=== PATIENT | male | born 1945 | race Caucasian/White ===

== ENCOUNTER 2020-10-27 14:56 | Outpatient (REF) | payer MEDICARE, OTHER, SELFPAY ==
[2020-10-29 16:40] LABS: COVID-19 RT-PCR UVMMC Result Negative (Negative)
== END 2020-10-27 15:16 ==
LOC: NCHCN 14:56
PROVIDERS: PCP Physician Assistant; Visit Provider Nurse Practitioner Family
DX: R19.7 Diarrhea, unspecified (principal)
CPT/HCPCS: U0003

== ENCOUNTER 2021-07-06 14:01 | Outpatient (REF) | payer MEDICARE, OTHER, SELFPAY ==
--- NOTE | 2021-07-06 12:00 | SKI_PTH ---
PATIENT: Altaf Pulido LOC: [facility] U#:[id number] AGE/SX: 76/M ROOM: RE07/06/[address]: Valeriano Velázquez : 1945 BED: DIS: 07/06/2021 SPEC #: [id number] RECD: 07/06/21 18:17 STATUS: TALHA REKathy #: [id number] GI: 07/06/21 12:[address]: Valeriano Velázquez DEPT: Surgical Specimen RECD BY: Ruth Franco Tissues: 1 - SKIN BIOPSY(SHAVE/PUNCH) Procedures: SKIN LEVEL 4 Comments: [id number]
== END 2021-07-06 14:02 | disposition home or self-care (01) ==
LOC: LBN 14:01
PROVIDERS: PCP Physician Assistant; Visit Provider Physician Assistant
DX: C44.629 Squamous cell carcinoma of skin of left upper limb, including shoulder (principal)
CPT/HCPCS: 88305

== ENCOUNTER 2024-03-10 16:05 | Outpatient (REF) | payer MEDICARE, SELFPAY ==
[2024-03-10 18:34] LABS: HCT 41.7 % (40.0-50.0); HGB 13.5 g/dL (13.5-17.5); MCH 28.2 pg (27.0-33.0); MCHC 32.4 % (32.0-36.0); MCV 87 fL (80-95); MPV 10.1 fL (8.0-11.0); Platelet Count 459 10^3/uL (130-400); RBC 4.79 10^6/uL (4.36-5.78); RDW 13.1 % (11.8-14.1); RDW-SD 41.5 fL; WBC 13.19 10^3/uL (4.4-10.8)
[2024-03-10 18:58] LABS: ALT 30 U/L (16-63); AST 31 U/L (15-37); Alkaline Phosphatase 137 U/L (46-116); Anion Gap 9.3 mmol/L (3-11); BUN 25 mg/dL (7-18); Bilirubin, Total 0.9 mg/dL (0.2-1.0); CO2 29.7 mmol/L (21.0-32.0); CREATININE 1.4 mg/dL (0.70-1.30); Calcium 10.3 mg/dL (8.5-10.1); Chloride 98 mmol/L (98-107); Estimated GFR 50.81 (mL/min/1.73m2); FREE T4 1.59 ng/dL (0.76-1.46); Glucose 104 mg/dL (74-106); Lipase 34 U/L (16-77); Potassium 4.7 mmol/L (3.5-5.1); Sodium 137 mmol/L (136-145); TSH 1.23 uIU/Ml (0.36-3.74)
[2024-03-11 16:31] LABS: Iron 19 ug/dL (65-175)
[2024-03-11 19:25] LABS: CEA 3.1 ng/mL (See Note)
== END 2024-03-10 16:06 | disposition home or self-care (01) ==
LOC: NCHCN 16:05
PROVIDERS: PCP Physician Assistant; Visit Provider Physician Assistant
DX: R63.4 Abnormal weight loss (principal)
CPT/HCPCS: 80053; 83690; 85027; 82378; 83540; 84439; 84443

== ENCOUNTER → 2024-03-13 04:20 | Outpatient (CLI) | payer MEDICARE, SELFPAY ==
[2024-03-13] MEDS: Barium Sulfate 2% W/V-Berry Smoothie 450 ML BTL PO ×2 (08:00→08:01)
[2024-03-13] MEDS: Normal Saline - Diluent 50 ML VIAL IJ (09:14)
[2024-03-13] MEDS: Omnipaque 350 MG/ML 500 ML BTL-Imaging package 100 ML IJ (09:15)
--- NOTE | 2024-03-13 09:27 | DI.CT_ITS ---
Exam(s) CT CHEST/ABD/PEL W EXAM: CT CHEST/ABD/PEL W CLINICAL HISTORY: UNEXPLAINED WT LOSS, R63.4,PROSTATE CA, ? METS. TECHNIQUE: Imaging Protocol: Axial computed tomography images with coronal and sagittal reformatted images were created and reviewed CONTRAST MATERIAL: Intravenous: Omnipaque 350 Contrast volume:100 ml Oral: Yes. Oral contrast was also administered for bowel opacification. COMPARISON: No exams were available for comparison FINDINGS: CHEST: LUNGS: No infiltrates nor pleural effusions. No pulmonary nodules evident. No findings in the trach ea and mainstem bronchi.. MEDIASTINUM: There is no hilar nor mediastinal adenopathy. Visualized thyroid unremarkable. CARDIAC: Heart size is normal. There is no pericardial effusion. OSSEOUS: No significant osseous lesions.Fractures.. ABDOMEN: There is no ascites. LIVER: There are no focal hepatic lesions nor dilatation of intrahepatic ducts. GALLBLADDER/BILIARY: Gallbladder is surgically absent. CBD is not dilated. PANCREAS: No evidence of pancreatic mass nor dilatation of the pancreatic duct. SPLEEN: Spleen size upper normal. Splenic and portal veins are patent. ADRENALS: Left adrenal unremarkable. There is a large mass in the right retroperitoneum starting at level the adrenal gland and extending caudally for a distance of 18 cm, this heterogeneous mass also measuring 12 cm AP by approximately 8 cm wide. It in golf size the medial aspect of the right kidney and renal pelvis and the right renal vein and IVC. Also engulfs the right renal artery. It insinua tia between the abdominal aorta and vertebral bodies, elevating the abdominal aorta by 2 cm off the a nterior cortex of the lumbar vertebrae. In golf so right ureter and results in unilateral right-side d hydronephrosis-moderate. It contacts the uncinate process of the pancreas. KIDNEYS: Is difficult to determine if the above described mass originates from or secondarily involve s the right kidney. It encircles the right renal vein and right renal artery. Opposite-left kidney contains the 2 cysts measuring up to 4.7 x 4.7 cm and there is some subcapsular blood-hematoma with thickness of 1 cm around the inferior half of the left kidney. There are no alvin d lesions in left kidney. No hydronephrosis left kidney. Left ureter is not dilated. ABDOMINAL AORTA: Calcified but not enlarged. However, as described above it is elevated off of the v ertebral bodies by the large right-sided retroperitoneal mass. LYMPH NODES: See above mass description. There is no adenopathy around the aortic bifurcation nor al tara the iliac chains. There is no inguinal adenopathy. ABDOMINAL WALL: No evidence of significant anterior abdominal wall nor inguinal hernia. GI: There is no evidence of bowel obstruction.There is abundant fecal material throughout the colon. PELVIS: LYMPH NODES: There is no intrapelvic nor inguinal adenopathy. GI: No evidence of appendicitis.Extensive sigmoid diverticulosis. No obvious acute diverticulitis. URINARY BLADDER: No calculi nor masses evident REPRODUCTIVE: There is a TURP defect in the prostate. Prostate size is upper normal. Seminal vesicl es unremarkable. Does ectomy clips in both sides of the scrotum. Right-sided varicocele evident. OSSEOUS: There few healed left-sided rib fractures. No lytic nor blastic lesions identified. Multil evel degenerative disc disease. Also mild anterolisthesis L5 upon S1 due to bilateral pars defects a t L5 level. No compression fractures. IMPRESSION: 1. Main finding here is a huge right-sided retroperitoneal mass which involves the right adrenal glan d, right kidney, right renal vein, IVC, right renal artery and is associated with unilateral right-si ded hydronephrosis. It is contiguous with but appears separate from the right psoas muscle. Most pr obably a large heterogeneous malignant mass. 2. It is interesting to note that there is a 9-10 mm thick subcapsular hematoma in the opposite-left kidney. Therefore there is a possibly that this huge right-sided retroperitoneal mass has a hemorrha gic component. 3. This large mass on the right side engulf see IVC and the IVC may be occluded. 4. There are no metastatic nodules in the lung potter and no pleural effusions. No intrathoracic akash nopathy. 5. No metastatic lesions seen in the liver. 6. Gallbladder is surgically absent. Biliary tree is not dilated. No significant osseous lesions. No fractures. Anterolisthesis L5 upon S1 due to L5 level pars defec ts. Report called by myself to GIOVANNA Velázquez at physician's office. (03/13/2024) RADIATION DOSE DELIVERED: 1,639.32mGy.cm Total DLP DATA REPOSITORY: All CT scans at this facility are submitted to the National Radiology Data Registry (NRDR) Dose Index Registry (DIR) with the [employer] ([employer]). RADIATION OPTIMIZATION: All CT scans at this facility use at least one of these dose optimization te chniques: automated exposure control; mA and/or kV adjustment per patient size (includes targeted exa ms where dose is matched to clinical indication); or iterative reconstruction.
== END ==
PROVIDERS: PCP Physician Assistant; Visit Provider Physician Assistant
DX: R93.2 Abnormal findings on diagnostic imaging of liver and biliary tract (principal)
CPT/HCPCS: 74177; 71260

== ENCOUNTER 2024-04-10 10:16 | Emergency (ER) | payer MEDICARE, SELFPAY ==
[2024-04-10] VITALS (34 sets, daily range): BP systolic 107–143; BP diastolic 31–68; PULSE 54–87; RESP 12–22; TEMP 37.1; O2SAT 20–99
[2024-04-10] MEDS: Normal Saline 1,000 ML 1000 ML IV ×2 (11:09→12:07)
--- NOTE | 2024-04-10 11:12 | ED.GENADUL_ITS ---
Discharge Plan Disposition Patient Disposition: Home Condition: Stable Discharge Details Clinical Impression: Cancer cachexia, Palliative care patient, Advanced care planning/counseling discussion Primary Care Provider: Valeriano Velázquez ED Provider: Yocasta Smith Home Meds and New Rx's Prescriptions: No Action ondansetron 4 mg tablet,disintegrating 4 mg PO Q6H PRN hydrocodone-acetaminophen 5-325 mg tablet 1 tab PO Q6H PRN senna 8.6 mg capsule 8.6 mg PO DAILY Qty: 90 0RF olanzapine 2.5 mg tablet See Rx Instructions PO QHS Qty: 30 2RF Rx Instructions: 2.5 mg QHS. Can increae to 2 pills (5 mg) HS after a week if desired orally every day at bedtime; mirabegron [Myrbetriq] 50 mg tablet extended release 24 hr 50 mg PO DAILY ondansetron HCl 4 mg tablet 4 mg PO Q8H Patient Comments: TAKE 1 TABLET BY MOUTH THREE TIMES DAILY NEEDED FOR NAUSEA Discharge Instructions Additional Instructions: use walker to help with mobility [facility] with follow up with you tomorrow HPI General Date/Time Provider Initiated Documentation: 04/10/24 10:31 . Limitations to Documentation: physical limitation . Information obtained by: patient, family and RN/MD . HPI Narrative: 78-year-old gentleman with past medical history of prostate cancer, A-fib on anticoagulation with recent diagnosis of retroperitoneal mass concerning for malignancy presents for evaluation of decreased oral intake and poor function. Patient recently had a biopsy of the mass, but it was inconclusive. He has not started on any therapy. He reports no appetite and poor oral intake. He reports some difficulty with urination though no urinary frequency. He reports that he felt constipated and took a fleets enema this morning with relief of his constipation. Denies fever, nausea or vomiting. He was sent by his primary care provider for evaluation today. His doctor was concerned about his functional status at home. The patient and his state that they are worried he will live to be able to get the biopsy and that they are hoping that there may be something we could do today to help improve his functional status so that he is well enough to get the biopsy. Related Data Home Medications Medication Instructions Recorded Confirmed mirabegron 50 mg tablet,extended 50 mg PO DAILY 03/20/24 04/10/24 release 24 hr (Myrbetriq) hydrocodone 5 mg-acetaminophen 325 1 tab PO Q6H PRN 03/25/24 04/10/24 mg tablet olanzapine 2.5 mg tablet See Rx Instructions PO QHS #30 tabs 03/25/24 03/25/24 ondansetron 4 mg disintegrating 4 mg PO Q6H PRN 03/25/24 04/10/24 tablet sennosides 8.6 mg capsule (senna) 8.6 mg PO DAILY #90 caps 03/25/24 04/10/24 ondansetron HCl 4 mg tablet 4 mg PO Q8H 04/10/24 04/10/24 Previous Rx's Medication Instructions Recorded olanzapine 2.5 mg tablet See Rx Instructions PO QHS #30 tabs 03/25/24 sennosides 8.6 mg capsule (senna) 8.6 mg PO DAILY #90 caps 03/25/24 Allergies Allergy/AdvReac Type Severity Reaction Status Date / Time Penicillins Allergy Skin Rash Verified 04/10/24 11:13 General Stated Complaint: Abd Prob SYED: 3 Exam Narrative Exam Narrative: Review of Systems: All systems reviewed & are unremarkable except as noted in HPI and below Cachectic, ill-appearing NCAT PERRL, normal conjunctiva RRR, no murmur Unlabored respiratory effort, clear bilaterally Nondistended abdomen , soft nontender Extremities w/o deformity, no cyanosis, no edema Mild jaundice no focal neurologic deficits Appropriate mood and affect Course Vital Signs Vital signs: Vital Signs Temperature 37.1 C 04/10/24 10:25 Pulse 79 04/10/24 10:25 Respiratory Rate 16 04/10/24 10:25 Blood Pressure 109/31 L 04/10/24 10:25 Pulse Oximetry 98 04/10/24 10:25 Temperature 37.1 C 04/10/24 10:25 Temperature Source Temporal Artery Scan 04/10/24 10:25 Pulse 72 04/10/24 10:59 Respiratory Rate 15 04/10/24 10:59 Respiratory Effort Normal, Non-Labored 04/10/24 10:59 Blood Pressure 126/64 04/10/24 10:59 Blood Pressure Position Supine 04/10/24 10:59 Pulse Oximetry 96 04/10/24 10:59 Oxygen Delivery Method Room Air 04/10/24 10:59 Oxygen Flow Rate 0 04/10/24 10:25 Pain Level 7 04/10/24 10:59 Medical Decision Making Emergent evaluation of generalized weakness and poor oral intake. Initial differential includes advancement of malignancy, dehydration, electrolyte derangement, poor nutritional status, failure to thrive. Patient has lost a significant amount of weight leading to this diagnosis of a retroperitoneal mass. Official tissue diagnosis has not been obtained. The patient is followed by PCP and has not seen oncology. The patient did recently have a visit with palliative care. I discussed with the patient's primary care provider who would really like to see the patient admitted to the hospital because he he does not feel that the family is able to care for him at home and that his decline is very rapid. I also spoke with palliative care Dr. Sofia. The patient is not ready emotionally for hospice. Dr. Sofia is concern for possibly adrenal insufficiency contributing to his current symptoms. Will check lab work, give IV fluid resuscitation and steroids. Patient only was able to void a very minimal amount. Bladder scan revealed only 40 cc of urine. Remaining labs reviewed. Mild leukocytosis, no significant anemia. Not clinically significant hyponatremia. Mild elevation in kidney function. Bilirubin is trending up. No significant alteration in LFTs. Urinalysis without infection. Discussed with Dr. Lacey for hospitalization. Care plan will be reviewed by healthcare network consultant, in the meantime patient will be evaluated by physical therapy for recommendations in the emergency department. Patient has been evaluated by care management and physical therapy. His mobility is at baseline, and he is been provided a walker to assist with mobility and safety at home. Palliative care came to the emergency department and sent with the family for a very long time to talk with goals of care and options. At this time the patient and his agree for discharge home. [facility] hospice will be set up. Referrals will be placed for palliative care. They do not want home physical therapy. At this time he is discharged in stable condition. Medical Records Medical records reviewed: Yes I reviewed the patient's medical records. Lab Data Lab results reviewed: Yes I reviewed the patient's lab results. Quality:SDOH Health Related Social Needs: No Data to Display PFSH All Active Problems (Updated 04/10/24 @ 16:09 by Yocasta Smith MD) Adjustment reaction (Chronic) Constipation due to opioid therapy (Acute) Cancer cachexia (Acute) Nausea (Acute) Advanced care planning/counseling discussion (Acute) Palliative care patient (Acute) Dr. Alfonso, [facility] [place] Chronic anticoagulation (Acute) History of prostate cancer (Acute) S/P TARIP, Dr. hopkins [facility] [place] Leg edema (Acute) Atrial fibrillation (Chronic) Retroperitoneal mass (Acute) Unexplained weight loss (Acute) Medical History Diverticulosis of large intestine Pain in left shoulder Not for resuscitation Prediabetes Spinal stenosis Idiopathic urticaria Melena Hx of Squamous cell carcinoma of upper extremity Surgical History History of biopsy BCC forehead History of biopsy BCC right ear - 2021 SCC left ear - 2020 History of total knee arthroplasty 2019 History of tonsillectomy 1947 History of right knee surgery 2007 History of cholecystectomy 2008 History of shoulder surgery right, 2010 History of carpal tunnel surgery left Family History Mother Cancer Father Heart disease Diabetes Brother Diabetes Sister Diabetes Social History Smoking/Tobacco Use Status: Former Tobacco Use Smoking risk assessment performed?: Yes Alcohol Intake: never Drug use: Never Substance use type: does not use Housing: house Do you feel safe at home: Yes Do you feel safe in your relationship?: Yes
[2024-04-10 11:26] LABS: Abs Immature Grans 0.08 10^3/uL (0.0-0.06); Absolute Basophil Count 0.04 10^3/uL (0.0-0.2); Absolute Eosinophil Count 0.01 10^3/uL (0.0-0.7); Absolute Lymphocyte Count 0.86 10^3/uL (1.2-3.4); Absolute Monocyte Count 1.08 10^3/uL (0.1-0.8); Absolute Neutrophil Count 9.06 10^3/uL (1.2-6.7); Basophils % 0.4 %; Eosinophils % 0.1 %; HCT 37.4 % (40.0-50.0); HGB 11.8 g/dL (13.5-17.5); Immature Grans % 0.7 %; Lymphocytes % 7.7 %; MCH 26.5 pg (27.0-33.0); MCHC 31.6 % (32.0-36.0); MCV 84 fL (80-95); MPV 9.3 fL (8.0-11.0); Monocytes % 9.7 %; Neutrophils % 81.4 %; Platelet Count 264 10^3/uL (130-400); RBC 4.45 10^6/uL (4.36-5.78); RDW 14.5 % (11.8-14.1); RDW-SD 44.9 fL; WBC 11.13 10^3/uL (4.4-10.8)
[2024-04-10 11:41] LABS: ALT 21 U/L (16-63); AST 29 U/L (15-37); Albumin 2.7 g/dL (3.4-5.0); Alkaline Phosphatase 142 U/L (46-116); Anion Gap 9.7 mmol/L (3-11); BUN 20 mg/dL (7-18); Bilirubin, Total 1.7 mg/dL (0.2-1.0); CO2 29.3 mmol/L (21.0-32.0); CREATININE 1.6 mg/dL (0.70-1.30); Calcium 10.3 mg/dL (8.5-10.1); Chloride 93 mmol/L (98-107); Estimated GFR 43.29 (mL/min/1.73m2); Glucose 133 mg/dL (74-106); Sodium 132 mmol/L (136-145); Total Protein 6.6 g/dL (6.4-8.2)
[2024-04-10 12:32] LABS: Bilirubin Small (Negative); Blood Negative (Negative); Clarity Clear (Clear); Glucose Negative (Negative); Ketones Negative (Negative); Leukocyte Esterase Negative (Negative); Nitrite Negative (Negative); Specific Gravity >= 1.030 (1.005-1.025); pH 5.5 (5-8)
[2024-04-10] MEDS: Hydrocortisone SOD SUC. 100 MG VIAL IVP (14:07)
--- NOTE | 2024-04-10 14:28 | PT.INIE ---
PT Notes Visit Reasons: Weakness Physical Therapy Inpatient Initial Evaluation Date: 04/10/2024 Referring Doctor: Yocasta Smith MD PT Orders: PT CONSULT: Safety Consult for D/C Precautions: Fall. Standard. Activity as tolerated. Patient Profile/Admitting Diagnosis: 78-year-old male currently on palliative care with past medical history significant for prostate cancer with report of worsening reduction and oral intake, functional mobility decline, and generalized weakness. Referral was sent in to determine ability level and provide safe discharge recommendation. PMHX: All Active Problems Adjustment reaction (Chronic) Constipation due to opioid therapy (Acute) Cancer cachexia (Acute) Nausea (Acute) Advanced care planning/counseling discussion (Acute) Palliative care patient (Acute) Dr. Alfonso, [facility] [place] Chronic anticoagulation (Acute) History of prostate cancer (Acute) Who presented to the ED S/P TURP, Dr. hopkins [facility] [place] Leg edema (Acute) Atrial fibrillation (Chronic) Retroperitoneal mass (Acute) Unexplained weight loss (Acute) Medical History Diverticulosis of large intestine Pain in left shoulder Not for resuscitation Prediabetes Spinal stenosis Idiopathic urticaria Melena Hx of Squamous cell carcinoma of upper extremity Surgical History History of biopsy BCC forehead History of biopsy BCC right ear - 2021 SCC left ear - 2020 History of total knee arthroplasty 2019 History of tonsillectomy 194 History of right knee surgery 2007 History of cholecystectomy 2008 History of shoulder surgery right, 2010 History of carpal tunnel surgery left Social History/Home Situation: 2 steps to enter [facility] rails but patient can hold onto doorframe for support. Equipment Owned/DME: None Subjective: Complained of chronic weakness, fatigue, and functional mobility decline for the past 3-6 months. Appetite has continued to decrease which has resuled to a weight loss of about 50 lbs in the past 3-5 months. worried about patient ignoring requests to provide assistance at home as patient is determined to stay independent as much as he could. Complained of lightheadedness that he said he has had since 3 months ago. Objective: General Observation: Resting on stretcher in ED room 4, present. Cachexic. Mental Status: Alert and oriented as to person, place, time, and purpose. Able to pay attention, focus, and respond appropriately. Pain: 5/10 pain in abdominal area Vital Signs: O2 saturation above 90% on RA ROM: Right Upper Extremity: Shoulder Flexion WFL. Shoulder abduction WFL. Elbow flexion WFL. Wrist flexion WFL. Functional opening and closing of hand WFL. Left Upper Extremity: Shoulder Flexion WFL. Shoulder abduction WFL. Elbow flexion WFL. Wrist flexion WFL. Functional opening and closing of hand WFL. Right Lower Extremity: Hip flexion WFL. Hip abduction WFL. Knee flexion WFL. Ankle dorsiflexion WFL. Ankle plantarflexion WFL. Left Lower Extremity: Hip flexion WFL. Hip abduction WFL. Knee flexion WFL. Ankle dorsiflexion WFL. Ankle plantarflexion WFL. Strength: Right Upper Extremity: Shoulder flexors 4-/5. Shoulder abductors 4-/5. Elbow flexors 4-/5. Elbow extensors 4-/5. 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 Left Upper Extremity: Shoulder flexors 4-/5. Shoulder abductors 4-/5. Elbow flexors 4-/5. Elbow extensors 4-/5. 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 Right Lower Extremity: Hip flexors 4-/5. Hip abductors 4-/5. Knee flexors 3+/5. Knee extensors 4-/5. Ankle dorsiflexors 4-/5. Ankle plantarflexors 4-/5. Left Lower Extremity: Hip flexors 4-/5. Hip abductors 4-/5. Knee flexors 3+/5. Knee extensors 4-/5. Ankle dorsiflexors 4-/5. Ankle plantarflexors 4-/5. Bed Mobility/Transfers: Minimal verbal cueing provided for use of B hands as needed for support, movement sequence, AD management, and posture to reduce fall risk and minimize pain report Supine to sit contact guard assist with HOB flat Sit to supine stand by assist Sit to stand stand by assist with FWW Stand to sit stand by assist with FWW Gait: About 80 feet using FWW with decreased edinson and decreased trunk extension. Contact guard assist provided during turns only, otherwise just stand by assist given. Balance: Static Sitting: Normal Dynamic Sitting: Normal Static Standing: Fair Dynamic Standing: Fair Special Tests: Mobility Limitations Standardized Measure [facility] AM-PAC 6 clicks Basic Mobility Inpatient Short Form: Raw Score: 22 CMS Score: 21% deficit 4-Stage balance Test: Feet together 10 seconds Semi-tandem <10 seconds Full-tandem deferred One-legged stance deferred Informed Consent/Education: Patient was instructed in purpose of PT consult and plan of care. Agreeable to proceed with established PT POC to achieve personal goals. Assessment: Patient presents with clinical signs and symptoms consistent with current/admitting diagnoses that have resulted to mobility limitations, gait instability, generalized weakness, and overall ADL decline as demonstrated by the following impairment level findings: 1. Decreased strength to B UE/LE major muscle groups 2. Impaired standing balance 3. Impaired activity tolerance 4. Limitation of joint range of motion in L shoulder, chronic 5. Shortness of breath 6. Pain in abdominal area 4-03/07, chronic Impairments are contributing to the following functional limitations: 1. Decline in bed mobility skills 2. Decline in transfer skills 3. Difficulty with ambulation without assistive device and physical assistance 4. Increased completion time for mobility ADL performance 5. Increased risk for falls 6. Difficulty with managing steps alone safely Patient is assessed as a 21186 moderate complexity based on the following: History: 78-year-old male with past medical history as indicated above Examination: Demonstrable impairment in strength, balance, and mobility level with underlying impairments and functional limitations as exhibited above as well as deficit score of 21% utilizing the [facility] Mobility Inpatient Short Form Presentation: Evolving Decision Makin moderate complexity Goals: N/A. PT evaluation and one treatment session only for functional mobility training. Plan of Care/Treatment Plan: N/A. PT evaluation and one treatment session only for functional mobility training. DISCHARGE RECOMMENDATIONS: Home with no services [X] Home with services. Patient will benefit from home health PT services in order to progress mobility level using least restrictive assistive ambulatory device, assess home safety, identify additional equipment needs, and establish a functional maintenance program that will increase ability of patient to remain at home. [] Home with outpatient PT [] [] SNF for continued rehabilitation [] [] [facility] [] [] SNF versus LTC based on ability to participate and progress [] TREATMENT CODE/TIME: 84518 x 20 minutes for 1 unit, 41887 x 13 minutes for 1 unit (14:28-15:01). Thank you for the opportunity to participate in the care of this patient. Lore Cota PT, DPT, CLT [facility] [place], [place]
--- NOTE | 2024-04-10 15:54 | PCNE_ITS ---
Date of service: 04/10/24 Time of Service: 15:12 History of Present Illness Narrative: Jose A was seen in the ED at [facility] with his , Latricia present. He has been seen previously for Palliative care by Dr. Sofia (x1 visit). He has a past medical Hx significant for prostate cancer, A-fib on anticoagulation with recent diagnosis of retroperitoneal mass concerning for malignancy. He saw his PCP today and was referred to the ED for evaluation in the setting of decreased oral intake and poor function. He recently had a biopsy of the mass, but it was inconclusive. He has not started on any therapy. His appetite is decreased, he is down about 50# over the last 3-5 months. He is taking in 1 milkshake per day. He has increased abd pain after he drinks the milkshake. His is worried that he will fall. He is weak and unsteady. He has been insisting that he sleep in their bedroom upstairs. They have a downstairs bedroom that he can use and he appears to be coming around to the idea of sleeping there. His pain is controlled with hydrocodone. He takes it approximately q7-8 hours. Discussed the option of fentanyl patch, which he is interested in and can be considered when he requires more doses of his hydrocodone. He feels that the steroids that he got today are making him feel better. Discussed adding dexamethasone which could help with pain control, appetite, nausea and energy. He is interested in trying it at home. Reviewed goals. His goal is to get home. He wishes to remain in his home through the end of his life. He has another biopsy scheduled but his is worried that he may not be strong enough to get to it or that he could before the appointment. It is scheduled at [facility] on 04/21. Initially he was clear that he wanted to get the Bx done but at the end of the visit, he states he probably will not end up going. Discussed what he would do with the results. He does not think he would want treatment. Discussed that his reserve is limited, which would likely make treatments more difficult to tolerate. Despite all of this, he would like to have a definitive diagnosis. CODE status: he is clear he is a DNR/DNI. He has paperwork that he did with an insurance attorney but no COLST- He will need a COLST. Offered to do this today in the ED but he preferred not to. Discussed the option of hospice. He is interested in hospice care at home. He understands that if he decides to move forward with the Bx, he will need to revoke hospice but, again, he stated at the end of the meeting that he probably would not pursue this. Assessment and Plan Assessment and plan (1) Retroperitoneal mass: Status: Acute (2) Unexplained weight loss: Status: Acute (3) Cancer cachexia: Status: Acute (4) Constipation due to opioid therapy: Status: Acute (5) Cancer related pain: Status: Acute (6) Nausea: Status: Acute (7) History of prostate cancer: Status: Acute (8) Atrial fibrillation: Status: Chronic (9) Chronic anticoagulation: Status: Acute (10) Advanced care planning/counseling discussion: Status: Acute Assessment and plan: Jose A was seen in the ED at [facility] with his , Latricia present. He has been seen previously for Palliative care by Dr. Sofia (x1 visit). He has a past medical Hx significant for prostate cancer, A-fib on anticoagulation with recent diagnosis of retroperitoneal mass concerning for malignancy. He saw his PCP today and was referred to the ED for evaluation in the setting of decreased oral intake and poor function. He recently had a biopsy of the mass, but it was inconclusive. He has not started on any therapy. His appetite is decreased. He is losing weight, he is down about 50# over the last 3-5 months. He is taking in 1 milkshake per day. He has increased abd pain after he drinks the milkshake. He is weak and unsteady. He is having more difficulty getting around. He sleeps most of the time. His pain is controlled with hydrocodone. He takes it approximately q7-8 hours. Discussed the option of fentanyl patch, which he is interested in and can be considered when he requires more doses of his hydrocodone in a 24h period. Rx send for dexamethasone which may help with pain control, appetite, nausea and energy. Reviewed goals. His goal is to get home. He wishes to remain in his home through the end of his life. He has another biopsy scheduled but his is worried that he may not be strong enough to get to it or that he could before the appointment. It is scheduled at [facility] on 04/21. Initially he was clear that he wanted to get the Bx done but at the end of the visit, he states he probably will not end up going. Discussed what he would do with the results. He does not think he would want treatment. Discussed that his reserve is limited, which would likely make treatments more difficult to tolerate. Despite all of this, he would like to have a definitive diagnosis. CODE status: he is clear he is a DNR/DNI. He has paperwork that he did with an insurance attorney but no COLST- He will need a COLST. Offered to do this today in the ED but he preferred not to. Discussed the option of hospice. He is interested in hospice care at home. He understands that if he decides to move forward with the Bx, he will need to revoke hospice but, again, he stated at the end of the meeting that he probably would not pursue this. He and his would like a referral to Hospice. Will send to [facility]. They are encouraged to contact us with any questions or concerns. Will have patrol sergeant sheriff's office call to check on him tomorrow. Review of Systems Narrative: Per HPI. PFSH All Active Problems (Updated 04/11/24 @ 09:00 by Karen Chaudhary NP) Cancer related pain (Acute) Adjustment reaction (Chronic) Constipation due to opioid therapy (Acute) Cancer cachexia (Acute) Nausea (Acute) Advanced care planning/counseling discussion (Acute) Palliative care patient (Acute) Dr. Alfonso, [facility] Chronic anticoagulation (Acute) History of prostate cancer (Acute) S/P TURP, Dr. hopkins [facility] Leg edema (Acute) Atrial fibrillation (Chronic) Retroperitoneal mass (Acute) Unexplained weight loss (Acute) Medical History Diverticulosis of large intestine Pain in left shoulder Not for resuscitation Prediabetes Spinal stenosis Idiopathic urticaria Melena Hx of Squamous cell carcinoma of upper extremity Surgical History History of biopsy BCC forehead History of biopsy BCC right ear - 2021 SCC left ear - 2020 History of total knee arthroplasty 2019 History of tonsillectomy 194 History of right knee surgery 2007 History of cholecystectomy 2008 History of shoulder surgery right, 2010 History of carpal tunnel surgery left Family History Mother Cancer Father Heart disease Diabetes Brother Diabetes Sister Diabetes Social History Smoking/Tobacco Use Status: Former Tobacco Use Smoking risk assessment performed?: Yes Alcohol Intake: never Drug use: Never Substance use type: does not use Housing: house Do you feel safe at home: Yes Do you feel safe in your relationship?: Yes Exam Narrative Exam Narrative: General: very pleasant, thin/cachectic, older man. His skin is pale. He was laying flat on the stretcher then sat for part of the visit before he needed to lay down again. He is alert and oriented. Engages in the visit, answers questions and provides information. HEENT: normocephalic, atraumatic, EOMI, mmm. Neck: supple. Respiratory: respirations appear even and unlabored at rest. Extremities: moves all 4 extremities freely, gait not assessed. Results Last Vital Signs Temp 37.1 C 04/10/24 10:25 Pulse 57 L 04/10/24 14:00 Resp 21 04/10/24 14:01 BP 107/46 L 04/10/24 14:00 Pulse Ox 96 04/10/24 14:01 Labs 04/10/24 10:35 04/10/24 10:35 Labs: Laboratory Results - last 24 hr 04/10/24 04/10/24 10:35 12:18 WBC 11.13 H RBC 4.45 Hgb 11.8 L Hct 37.4 L MCV 84 MCH 26.5 L MCHC 31.6 L RDW 14.5 H Plt Count 264 MPV 9.3 Immature Gran % 0.7 Neutrophils % 81.4 Lymphocytes % 7.7 Monocytes % 9.7 Eosinophils % 0.1 Basophils % 0.4 Nucleated RBC % 0.0 Absolute Neutrophils 9.06 H Absolute Lymphocytes 0.86 L Absolute Monocytes 1.08 H Absolute Eosinophils 0.01 Absolute Basophils 0.04 Sodium 132 L Potassium 4.0 Chloride 93 L Carbon Dioxide 29.3 Anion Gap 9.7 BUN 20 H Creatinine 1.6 H Est GFR (CKD-EPI 2020) 43.29 Glucose 133 H Calcium 10.3 H Total Bilirubin 1.7 H AST 29 ALT 21 Alkaline Phosphatase 142 H Total Protein 6.6 Albumin 2.7 L Urine Color Yellow Urine Clarity Clear Urine pH 5.5 Ur Specific [place] >= 1.030 H Urine Protein Trace Urine Ketones Negative Urine Blood Negative Urine Nitrite Negative Urine Bilirubin Small H Urine Urobilinogen 4.0 H Ur Leukocyte Esterase Negative Urine Glucose Negative
--- NOTE | 2024-04-10 16:34 | NUR.NOTE ---
I gave the patient a walker.:
== END 2024-04-10 16:37 | disposition home or self-care (01) ==
PROVIDERS: Emergency Provider Emergency Medicine; PCP Physician Assistant
DX: R19.00 Intra-abdominal and pelvic swelling, mass and lump, unspecified site (principal); R64 Cachexia; K59.03 Drug induced constipation; T40.2X5A Adverse effect of other opioids, initial encounter; G89.3 Neoplasm related pain (acute) (chronic); R11.0 Nausea; Z85.46 Personal history of malignant neoplasm of prostate; I48.91 Unspecified atrial fibrillation; Z79.01 Long term (current) use of anticoagulants; Z71.89 Other specified counseling; R62.7 Adult failure to thrive; R39.198 Other difficulties with micturition; R63.8 Other symptoms and signs concerning food and fluid intake
CPT/HCPCS: 00123; 36415; 80053; 96361; 96374; 97162; 97530; 99284; 81003; 85025; 99283; J1720